=== PATIENT | male | born 1940 | race Caucasian/White ===

== ENCOUNTER 2018-12-01 08:44 | Emergency (ER) | payer OTHER, BC ==
[~2018-12-01] VITALS: Ht 188 cm; Wt 114.3 kg
[~2018-12-01 08:44] MED LIST: TERA2CAP PO
[2018-12-01 08:55] VITALS: BP 130/75
--- NOTE | 2018-12-01 09:03 | NUR ---
PT TO ER BED 11
--- NOTE | 2018-12-01 09:03 | NUR ---
Patient ambulated to bed 11 at this time.
--- NOTE | 2018-12-01 09:15 | NUR ---
78/ M BIB , C/O 06/19 NON RADIATING INTERMITTENT BL LOWER BACK X FOR ABOUT 2 WEEKS, WORSE YESTERDAY AND TODAY. PATIENT REPORTS NO PAIN AT THIS TIME, STATES PAIN IS ONLY WITH CHANGE OF POSITION OR AMBULATION. PT STATES HE NOTICED THE PAIN AFTER COMING DOWN A LADDER, FELT A TWISTING MOTION. REPORTS CHRONIC BACK PAIN FOR 20+ YEARS. DENIES ANY OTHER SYMPTOM. AOX4, CLEAR SPEECH, SLOW BUT STEADY GAIT.
[2018-12-01] MEDS ORDERED: HYDROcodone/APAP 5/325 MG 1 TAB TAB PO ONE (10:05)
[2018-12-01] MEDS ORDERED: KETOROLAC 60 MG/2 ML VIAL IM ONE (10:05)
--- NOTE | 2018-12-01 11:38 | NUR ---
Patient discharged with v/s stable. Written and verbal after care instructions given and explained. Patient verbalized understanding. Ambulatory with to car. All questions addressed prior to discharge. Advised to follow up with PMD.
[2018-12-01 11:42] VITALS: BP 125/73
== END 2018-12-01 11:38 | disposition home or self-care (01) ==
LOC: MED 08:44
DX: M54.5 Low back pain (principal); G89.29 Other chronic pain; I10 Essential (primary) hypertension; Z79.899 Other long term (current) drug therapy
CPT/HCPCS: 96372; 99283; J1885

== ENCOUNTER 2019-07-20 10:20 | Outpatient (CLI) | payer OTHER, BC ==
[2019-07-20 10:48] LABS: BASOPHILS % (AUTO) 0.3 % (0.0-2.0); EOSINOPHILS % (AUTO) 0.5 % (0.0-4.0); HEMATOCRIT 36.4 % (36-52); HEMOGLOBIN 12.3 g/dL (12.0-18.0); LYMPHOCYTES # (AUTO) 0.7 K/uL (2.0-11.5); LYMPHOCYTES % (AUTO) 8.8 % (20.5-51.1); MEAN CORPUSCULAR HEMOGLOBIN 28 pg (27-31); MEAN CORPUSCULAR HGB CONC 34 g/dL (33-37); MONOCYTES # (AUTO) 0.6 K/uL (0.8-1.0); MONOCYTES % (AUTO) 7.2 % (1.7-9.3); NEUTROPHILS # (AUTO) 6.9 K/uL (1.8-7.7); NEUTROPHILS % (AUTO) 83.2 % (42.2-75.2); PLATELET COUNT (AUTO) 254 K/uL (140-450); RED BLOOD CELL COUNT(AUTO) 4.44 MIL/uL (4.20-6.10); RED CELL DISTRIBUTION WIDTH 16.1 % (11.6-13.7); WHITE BLOOD COUNT (AUTO) 8.3 K/uL (4.8-10.8)
[2019-07-20 11:05] LABS: ANION GAP 10.2 (8-16); CARBON DIOXIDE 27.8 mmol/L (21-32); CHLORIDE 101 mmol/L (98-107); GLUCOSE 137 mg/dL (74-106); SODIUM SERUM 135 mmol/L (136-145); UREA NITROGEN, BLOOD 16 mg/dL (7-18)
[2019-07-20 12:43] LABS: APPEARANCE,URINE CLEAR (CLEAR); BILIRUBIN,URINE NEGATIVE (NEGATIVE); BLOOD, URINE NEGATIVE (NEGATIVE); COLOR,URINE YELLOW (YELLOW); LEUKOCYTE ESTERASE ,URINE NEGATIVE (NEGATIVE); NITRITE, URINE POSITIVE (NEGATIVE); PH,URINE 5.5 (5.0-9.0); UGLUCOSE NEGATIVE (NEGATIVE)
== END 2019-07-20 20:36 | disposition home or self-care (01) ==
LOC: MLB 10:20
PROVIDERS: ATTEND General Practice
DX: R30.0 Dysuria (principal); R53.1 Weakness; R68.83 Chills (without fever); R06.02 Shortness of breath
CPT/HCPCS: 36415; 80048; 81003; 83880; 85025

== ENCOUNTER 2023-12-17 08:33 | Inpatient (IN) | payer OTHER, BC ==
[~2023-12-17] VITALS: Ht 188 cm; Wt 102.1 kg
[2023-12-17] MEDS ORDERED: traMADol 50 MG TAB PO PRN (09:55)
[2023-12-17] MEDS ORDERED: ONDANSETRON 4 MG/2 ML VIAL IVP PRN (09:55)
[2023-12-17] MEDS ORDERED: DOCUSATE SODIUM 100 MG GELCAP PO PRN (09:55)
[2023-12-17] MEDS ORDERED: POTASSIUM CHLORIDE 10 MEQ TABER PO PRN (09:55)
[2023-12-17] MEDS ORDERED: MAG SULF 2000 MG/WATER PREMIX 50 ML IV PRN (09:55)
[2023-12-17] MEDS ORDERED: MORPHINE SULFATE 2 MG/ML SYR IVP PRN (09:55)
[2023-12-17] MEDS ORDERED: LORazepam 2 MG/ML VIAL IVP PRN (09:55)
[2023-12-17] MEDS ORDERED: ZOLPIDEM 10 MG TAB PO PRN (09:55)
[2023-12-17 10:00] VITALS: BP 137/76; PULSE 62; RESP 18; TEMP 97; O2SAT 97
[2023-12-17 10:04] VITALS: RESP 62
[2023-12-17 10:53] LABS: BASOPHILS % (AUTO) 0.6 % (0.0-2.0); EOSINOPHILS # (AUTO) 0.1 K/uL (0-0.4); EOSINOPHILS % (AUTO) 1.2 % (0.0-4.0); HEMATOCRIT 38.6 % (36-52); HEMOGLOBIN 13.5 g/dL (12.0-18.0); LYMPHOCYTES # (AUTO) 1.8 K/uL (2.0-11.5); LYMPHOCYTES % (AUTO) 23.6 % (20.5-51.1); MEAN CORPUSCULAR HEMOGLOBIN 30 pg (27-31); MEAN CORPUSCULAR HGB CONC 35 g/dL (33-37); MONOCYTES # (AUTO) 0.5 K/uL (0.8-1.0); MONOCYTES % (AUTO) 6.1 % (1.7-9.3); NEUTROPHILS # (AUTO) 5.4 K/uL (1.8-7.7); NEUTROPHILS % (AUTO) 68.5 % (42.2-75.2); PLATELET COUNT (AUTO) 208 K/uL (140-450); RED BLOOD CELL COUNT(AUTO) 4.44 MIL/uL (4.20-6.10); RED CELL DISTRIBUTION WIDTH 13.9 % (11.6-13.7); WHITE BLOOD COUNT (AUTO) 7.8 K/uL (4.8-10.8)
[2023-12-17] MEDS: NACL 0.9% 1,000 ML IV SCH (10:54)
[2023-12-17 11:10] LABS: ALANINE AMINOTRANSFERASE 23 U/L (12-78); ALBUMIN 3.5 g/dL (3.4-5.0); ALKALINE PHOSPHATASE 85 U/L (50-136); ANION GAP 10.8 (8-16); ASPARTATE AMINOTRANSFERASE 21 U/L (15-37); CARBON DIOXIDE 30.7 mmol/L (21-32); CHLORIDE 103 mmol/L (98-107); CREATININE 1.1 mg/dL (0.6-1.3); GLUCOSE 106 mg/dL (74-106); POTASSIUM 4.5 mmol/L (3.5-5.1); SODIUM SERUM 140 mmol/L (136-145); TOTAL BILIRUBIN 0.6 mg/dL (0.0-1.0); UREA NITROGEN, BLOOD 17 mg/dL (7-18)
[2023-12-17] MEDS: INDOMETHACIN 25 MG CAP PO SCH (14:08)
[2023-12-17 16:12] VITALS: BP 145/71; PULSE 58; RESP 18; TEMP 97; O2SAT 96
[2023-12-17 20:00] VITALS: PULSE 68; RESP 18; O2SAT 96
[2023-12-17] MEDS: TERAZOSIN 1 MG CAP PO SCH (21:20)
[2023-12-18] VITALS: BP 128/60; PULSE 60; RESP 18; TEMP 98.3; O2SAT 96
[2023-12-18] MEDS: ACETAMINOPHEN 325 MG TAB PO PRN (02:07)
[2023-12-18 07:04] LABS: BASOPHILS % (AUTO) 0.4 % (0.0-2.0); EOSINOPHILS # (AUTO) 0.1 K/uL (0-0.4); EOSINOPHILS % (AUTO) 1.1 % (0.0-4.0); HEMATOCRIT 39.5 % (36-52); HEMOGLOBIN 13.6 g/dL (12.0-18.0); LYMPHOCYTES # (AUTO) 3.8 K/uL (2.0-11.5); LYMPHOCYTES % (AUTO) 37.6 % (20.5-51.1); MEAN CORPUSCULAR HEMOGLOBIN 30 pg (27-31); MEAN CORPUSCULAR HGB CONC 35 g/dL (33-37); MEAN CORPUSCULAR VOLUME 87.5 fL (80-94); MONOCYTES # (AUTO) 0.7 K/uL (0.8-1.0); MONOCYTES % (AUTO) 6.9 % (1.7-9.3); NEUTROPHILS # (AUTO) 5.4 K/uL (1.8-7.7); PLATELET COUNT (AUTO) 228 K/uL (140-450); RED BLOOD CELL COUNT(AUTO) 4.51 MIL/uL (4.20-6.10); RED CELL DISTRIBUTION WIDTH 14.1 % (11.6-13.7)
[2023-12-18 07:25] LABS: ANION GAP 10.9 (8-16); CALCIUM 8.8 mg/dL (8.5-10.1); CARBON DIOXIDE 29.5 mmol/L (21-32); CHLORIDE 104 mmol/L (98-107); CREATININE 1.1 mg/dL (0.6-1.3); GLUCOSE 106 mg/dL (74-106); POTASSIUM 4.4 mmol/L (3.5-5.1); SODIUM SERUM 140 mmol/L (136-145); UREA NITROGEN, BLOOD 19 mg/dL (7-18)
[2023-12-18 08:00] VITALS: BP 141/76; PULSE 67; RESP 20; TEMP 96.9; O2SAT 96
[2023-12-18] MEDS ORDERED: COLC0.6C PO (08:27)
[2023-12-18] MEDS ORDERED: TRAM50TA3 PO (08:27)
[2023-12-18] MEDS: FUROSEMIDE 40 MG TAB PO SCH (08:40)
[2023-12-18] MEDS: ATORVASTATIN 20 MG TAB PO SCH (08:40)
== END 2023-12-18 14:10 | disposition home health service (06) | DRG 554 ==
LOC: MTU 09:15
PROVIDERS: ADMIT General Practice; ATTEND General Practice
DX: M10.9 Gout, unspecified (principal); N40.0 Benign prostatic hyperplasia without lower urinary tract symptoms; Z79.899 Other long term (current) drug therapy; M25.561 Pain in right knee
CPT/HCPCS: 36415; 73562; 80048; 80053; 83036; 83735; 84550; 85025; 87081; 93971; 97112; 97116; J1644; Q0092

== ENCOUNTER 2023-12-25 10:29 | Emergency (ER) | payer OTHER, BC ==
[~2023-12-25] VITALS: Ht 188 cm; Wt 104.3 kg
[~2023-12-25 10:29] MED LIST changes: +COLC0.6C PO; +TRAM50TA3 PO
[2023-12-25 10:32] VITALS: BP 121/93; PULSE 82; RESP 20; TEMP 98.1; O2SAT 95
[2023-12-25] MEDS ORDERED: AZIT250T4 PO (11:57)
[2023-12-25] MEDS ORDERED: BROM118S70 PO (11:57)
[2023-12-25 12:08] LABS: FLU A ANTIGEN negative (NEGATIVE); FLU B ANTIGEN negative (NEGATIVE)
== END 2023-12-25 12:01 | disposition home or self-care (01) ==
LOC: MED 10:29
DX: J20.9 Acute bronchitis, unspecified (principal); Z20.822 Contact with and (suspected) exposure to COVID-19; J44.9 Chronic obstructive pulmonary disease, unspecified; Z79.899 Other long term (current) drug therapy
CPT/HCPCS: 71045; 99284